=== PATIENT | male | born 1975 | race Caucasian/White ===

== ENCOUNTER 2020-12-11 11:19 | Emergency (ER) | payer BC ==
[2020-12-11] MEDS ORDERED: Lidocaine 1% 10 ML MDV INJECT ONE (11:43)
[2020-12-11] MEDS ORDERED: Diphtheria,Pertussis(Acell),Tetanus Vaccine 0.5 ML Syringe IM ONE ×2 (11:44→12:09)
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
== END 2020-12-11 13:05 | disposition home or self-care (01) ==
LOC: JD.ED 11:19
DX: S01.411A Laceration without foreign body of right cheek and temporomandibular area, initial encounter (principal); I10 Essential (primary) hypertension; E10.9 Type 1 diabetes mellitus without complications; E66.9 Obesity, unspecified; Z23 Encounter for immunization; Z88.0 Allergy status to penicillin; Z79.4 Long term (current) use of insulin; Z79.899 Other long term (current) drug therapy; W27.0XXA Contact with workbench tool, initial encounter
CPT/HCPCS: 12014; 90471; 90715; 99282; J2001; 12002